=== PATIENT | female | born 1955 | race Two or more races ===

== ENCOUNTER 2016-09-08 01:29 | Emergency (ER) | payer SELFPAY ==
[~2016-09-08] VITALS: Ht 162.6 cm; Wt 65.8 kg
[2016-09-08] MEDS ORDERED: SODIUM BICARBONATE 5 ML VIAL ONE (03:04)
[2016-09-08] MEDS ORDERED: LIDOCAINE 2% 20 ML MDV ONE (03:04)
[2016-09-08] MEDS ORDERED: TDAP [DIPH/PERTUSSIS/TET] 0.5 ML VIAL IM ONE ×2 (03:05→03:30)
[2016-09-08] MEDS ORDERED: SULFAMETH/TRIMETH 800/160 MG 1 UDTAB TABLET PO ONE ×2 (03:05→03:30)
[2016-09-08] MEDS ORDERED: LIDOCAINE 2% 20 ML MDV TP ONE (03:30)
[2016-09-08] MEDS ORDERED: SODIUM BICARBONATE 5 ML VIAL TP ONE (03:30)
[2016-09-08 04:56] VITALS: BP 138/87
== END 2016-09-08 04:25 | disposition home or self-care (01) ==
LOC: ER 01:29
DX: L03.011 Cellulitis of right finger (principal)
CPT/HCPCS: 10060; 90715; 99284; A4606; A6402 ×2; A6407; J3490 ×2; Z7610

== ENCOUNTER 2016-09-10 23:44 | Emergency (ER) | payer SELFPAY ==
[~2016-09-10] VITALS: Ht 157.5 cm; Wt 70.3 kg
[2016-09-11 00:09] VITALS: BP 157/65
== END 2016-09-11 02:41 | disposition home or self-care (01) ==
LOC: ER 09-11 00:08
DX: Z48.00 Encounter for change or removal of nonsurgical wound dressing (principal)
CPT/HCPCS: 99282; A4606; A6402; Z7610

== ENCOUNTER → 2018-06-04 | Emergency (ER) | payer BC ==
[~2018-06-04] VITALS: Ht 160 cm; Wt 76.2 kg
[~2018-06-04] MED LIST: IV NS 0.9% 1,000 ML BAG IV ONE; MORPHINE SULFATE INJ 2 MG/ML DISP.SYRIN IV ONE; MORPHINE SULFATE INJ 4 MG/ML DISP.SYRIN ONE; ONDANSETRON HCL/PF 4 MG/2 ML VIAL IV ONE; ONDANSETRON HCL/PF 4 MG/2 ML VIAL ONE
--- NOTE | 2018-06-04 10:32 | NUR ---
PATIENT TO ED DT RIGHT ARM PAIN AND LEFT LEG PAIN, 7/10, ACHING X 2 DAYS, TOOK TYLENOL WITH NO RELIEF. PATIENT NOT IN DISTRESS. SKIN IS WARM TO TOUCH AND NON DIAPHORETIC. PATIENT IS AFEBRILE. NO TRAUMA REPORTED
--- NOTE | 2018-06-04 10:41 | NUR ---
DR ROWLAND AT BEDSIDE FOR EVAL.
[2018-06-04 10:52] LABS: BASOPHILS % (AUTO) 0.5 % (0.0-2.0); EOSINOPHILS % (AUTO) 0.1 % (0.0-6.0); HEMATOCRIT 38 % (33-45); HEMOGLOBIN 12.8 g/dL (11.5-14.8); LYMPHOCYTES # (AUTO) 0.9 /CMM (0.8-4.8); LYMPHOCYTES % (AUTO) 9.3 % (20.0-44.0); MEAN CORPUSCULAR HGB CONC 34 g/dl (31.0-36.0); MEAN CORPUSCULAR VOLUME 82 fL (82-100); MONOCYTES # (AUTO) 0.5 /CMM (0.1-1.30); MONOCYTES % (AUTO) 5.5 % (2.0-12.0); NEUTROPHILS # (AUTO) 8.6 /CMM (1.8-8.9); NEUTROPHILS % (AUTO) 84.6 % (43.0-81.0); PLATELET COUNT (AUTO) 235 /CMM (150-450); RED BLOOD CELL COUNT(AUTO) 4.67 MIL/uL (4.0-5.2)
--- NOTE | 2018-06-04 10:59 | NUR ---
[facility]IE[facility] INTERN AT BEDSIDE
[2018-06-04 11:03] LABS: CALCIUM, SERUM 8.9 mg/dL (8.5-10.1); CARBON DIOXIDE 27 mmol/L (21-32); CHLORIDE 101 mmol/L (98-107); CREATININE 0.7 mg/dL (0.6-1.3); GLUCOSE 161 mg/dL (74-106); POTASSIUM 3.4 mmol/L (3.5-5.1); SODIUM SERUM 136 mmol/L (136-145); UREA NITROGEN, BLOOD 13 mg/dL (7-18)
[2018-06-04 11:06] LABS: INR 0.98 (0.85-1.15)
[2018-06-04 11:09] LABS: ALANINE AMINOTRANSFERASE 25 U/L (12-78); ALBUMIN 3.8 g/dL (3.4-5.0); ALKALINE PHOSPHATASE 79 U/L (46-116); ASPARTATE AMINOTRANSFERASE 14 U/L (15-37); BILIRUBIN,DIRECT 0.1 mg/dL (0.0-0.2); BILIRUBIN,TOTAL 0.5 mg/dL (0.2-1.0); TOTAL PROTEIN, SERUM 3.9 g/dL (6.4-8.2)
[2018-06-04 11:10] LABS: TROPONIN I < 0.017 ng/mL (0.00-0.056)
[2018-06-04 12:05] VITALS: BP 140/76
== END | disposition home or self-care (01) ==
LOC: ER 10:34
DX: S46.811A Strain of other muscles, fascia and tendons at shoulder and upper arm level, right arm, initial encounter (principal); S86.812A Strain of other muscle(s) and tendon(s) at lower leg level, left leg, initial encounter; M79.1 Myalgia; F41.9 Anxiety disorder, unspecified; F43.9 Reaction to severe stress, unspecified; I10 Essential (primary) hypertension; F17.200 Nicotine dependence, unspecified, uncomplicated; X58.XXXA Exposure to other specified factors, initial encounter; Y93.89 Activity, other specified; Y92.89 Other specified places as the place of occurrence of the external cause; Y99.8 Other external cause status
CPT/HCPCS: 36415; 71045-TC; 73564-TC; 80048-TC; 80076-TC; 82550-TC; 84484-TC; 85025-TC; 85730-TC; A4606; J2270; J2405; J7030; Z7610

== ENCOUNTER 2019-05-24 21:03 | Emergency (ER) | payer BC ==
[~2019-05-24] VITALS: Ht 157.5 cm; Wt 69.9 kg
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
[2019-05-24] MEDS ORDERED: oxyCODONE/APAP (5/325 MG) 1 UDTAB TABLET PO ONE (22:00)
[2019-05-24] MEDS ORDERED: KETOROLAC TROMETHAMINE INJ 60 MG/2 ML VIAL IM ONE (22:00)
[2019-05-24] MEDS ORDERED: oxyCODONE/APAP (5/325 MG) 1 UDTAB TABLET ONE (22:04)
[2019-05-24] MEDS ORDERED: KETOROLAC TROMETHAMINE INJ 30 MG/ML VIAL ONE (22:04)
[2019-05-24] MEDS ORDERED: LIDOCAINE 1%-EPI 1:100,000 20 ML VIAL ONE (22:31)
[2019-05-24] MEDS ORDERED: SODIUM BICARBONATE 5 ML VIAL ONE (22:31)
--- NOTE | 2019-05-24 22:43 | NUR ---
AT BEDSIDE FOR SUTURE
[2019-05-24] MEDS ORDERED: CEPHALEXIN MONOHYDRATE 500 MG CAPSULE PO ONE ×2 (22:56→23:00)
--- NOTE | 2019-05-24 22:58 | NUR ---
EMT AT BEDSIDE FOR WOUND DRESSING
[2019-05-24] MEDS ORDERED: LIDOCAINE 1%-EPI 1:100,000 20 ML VIAL TP ONE (23:00)
[2019-05-24] MEDS ORDERED: SODIUM BICARBONATE 5 ML VIAL MC ONE (23:00)
--- NOTE | 2019-05-24 23:02 | NUR ---
Patient discharged to home in stable condition. Written and verbal after care instructions given. Patient verbalizes understanding of instruction. Pt ambulatory with a steady gait
[2019-05-24 23:04] VITALS: BP 152/88
== END 2019-05-24 23:14 | disposition home or self-care (01) ==
LOC: ER 21:03
DX: S61.211A Laceration without foreign body of left index finger without damage to nail, initial encounter (principal); I10 Essential (primary) hypertension; F17.200 Nicotine dependence, unspecified, uncomplicated; Z71.6 Tobacco abuse counseling; W26.0XXA Contact with knife, initial encounter; Y93.89 Activity, other specified; Y92.89 Other specified places as the place of occurrence of the external cause; Y99.8 Other external cause status
CPT/HCPCS: 12002; 73120; 96372; 99283; 99406; A6403 ×2; J1885; J3490 ×2